=== PATIENT | male | born 1965 | race Caucasian/White ===

== ENCOUNTER → 2019-02-13 | Outpatient (CLI) | payer OTHER ==
[~2019-02-13] MED LIST: BYSTOLIC10 MG PO; CLONAZEPAM 1 MG1 M1; GLUCOPHAGE500 MG PO; LEXAPRO20 MG; LIPITOR20 MG PO; NASALCROM40 MG/1 ML; NORCO 5-325 TA1 EACH PO; NORFLEX100 MG PO; PATADAY2.5 ML OP; PERCOCET 5-3251 EACH PO; TESTIM5 GM; TOBREX5 ML OPHTHALMIC; VIAGRA50 MG PO; ZANAFLEX2 M1 PO; ZOFRAN ODT4 MG PO
== END ==
LOC: CAT 11:22
DX: Z13.6 Encounter for screening for cardiovascular disorders (principal); E78.00 Pure hypercholesterolemia, unspecified; I25.10 Atherosclerotic heart disease of native coronary artery without angina pectoris

== ENCOUNTER → 2019-03-20 | Outpatient (CLI) | payer BC | LOC: SJCVCIMAG 08:15 | DX: I77.810 Thoracic aortic ectasia (principal); E78.00 Pure hypercholesterolemia, unspecified ==

== ENCOUNTER → 2019-08-19 | Outpatient (CLI) | payer BC | LOC: LAB 14:04 | PROVIDERS: ATTEND Family Medicine | DX: R05 Cough (principal); Z20.828 Contact with and (suspected) exposure to other viral communicable diseases ==